=== PATIENT | male | born 1980 | race Caucasian/White ===

== ENCOUNTER 2022-02-24 07:50 | Outpatient (CLI) | payer OTHER, SELFPAY | END 2022-02-24 07:51 | disposition home or self-care (01) | LOC: ANHAUDASC 07:53 | PROVIDERS: PCP Nurse Practitioner Family; Visit Provider Otolaryngology | DX: H90.3 Sensorineural hearing loss, bilateral (principal) | CPT/HCPCS: 92557; 92567 ==